=== PATIENT | female | born 1955 | race Caucasian/White ===

== ENCOUNTER 2020-11-04 18:43 | Observation (INO) ==
[2020-11-04 20:40] LABS: Mean Corpuscular HGB Conc 27.2 g/dL (31.6-35.5)
[2020-11-04 20:41] LABS: Basophils # 0.1 K/mcL (0.0-0.2); Basophils % 1.1 %; Eosinophils # 0.1 K/mcL (0.0-0.6); Hematocrit 33.4 % (35.3-44.9); Hemoglobin 9.1 g/dL (11.5-15.4); Immature Granulocytes % 0.2 % (0-4); Lymphocytes # 1.7 K/mcL (0.6-4.6); Lymphocytes % 26.2 %; Mean Corpuscular Hemoglobin 19.3 pg (28.0-33.3); Mean Corpuscular Volume 70.8 fL (83.0-100.0); Mean Platelet Volume 9.8 fL (9.4-12.4); Monocytes # 0.6 K/mcL (0.0-1.3); Platelet Count 274 K/mcL (140-400); Red Blood Count 4.72 M/mcL (3.82-4.97); Red Cell Distribution Width 18.4 % (11.5-14.5); Segmented Neutrophils % 61.5 %; White Blood Count 6.6 K/mcL (4.3-11.1)
[2020-11-04 20:45] LABS: Neutrophils # 4.1 K/mcL (1.6-8.9)
[2020-11-04 20:52] LABS: INR 1.1
[2020-11-04 20:55] LABS: Activated Partial Thrombo Time 24.5 Seconds (26.0-36.0)
[2020-11-04 20:58] LABS: Anisocytosis 1+ (Not Present)
[2020-11-04 20:59] LABS: Hypochromasia Present (Not Present); Microcytosis Present (Not Present); Platelet Estimate Normal (Normal)
[2020-11-04 21:02] LABS: BUN/Creatinine Ratio 14 (6-26); Blood Urea Nitrogen 23 mg/dL (8-23); Carbon Dioxide 26 mEq/L (23-29); Chloride 104 mEq/L (98-107); Glucose 139 mg/dL (70-105); Osmolality,Calculated 292 (280-300); Potassium 4.2 mEq/L (3.5-5.1); Sodium 138 mEq/L (136-145); Troponin I < 0.03 ng/mL (< 0.04); eGFR For African Americans 38 (> 60); eGFR For Non-African Americans 31 (> 60)
[2020-11-04 22:34] LABS: Bacteria,Urine Few per hpf (None-Few); Bilirubin,Urine Negative (Negative); Blood,Urine Negative (Negative); Clarity,Urine Clear (Clear); Color,Urine Yellow (Yellow); Glucose,Urine (UA) Normal (Normal); Hyaline Casts,Urine Few per lpf (None Seen); Ketones,Urine Negative (Negative); Leukocyte Esterase,Urine Small (Negative); Mucus,Urine Few per lpf (None-Few); Nitrite,Urine Negative (Negative); PH,Urine 5.5 pH Units (5.0-8.0); Protein,Urine Trace mg/dL (Neg-Trace); RBC,Urine 0-3 per hpf (0-3); Specific Gravity,Urine 1.024 (1.010-1.025); Squamous Epithelial Cell,Urine Few per hpf (None-Few); Transitional Epi Cells,Urine Few per hpf (None-Few); Urobilinogen,Urine Normal (Normal)
[2020-11-04] MEDS ORDERED: cefTRIAXone 1,000 MG in 0.9 % Sodium Chloride Mini Bag 100 ML IVPB ONE (23:31)
[2020-11-05] MEDS ORDERED: Naloxone 0.4 MG/ML INJ IVP PRN (00:11)
[2020-11-05] MEDS ORDERED: Ipratropium/Albuterol Neb 3 ML IH PRN (00:13)
[2020-11-05 01:12] LABS: Adenovirus Not Detected (Not Detect); Bordetella Pertussis Not Detected (Not Detect); Chlamydophila pneumoniae Not Detected (Not Detect); Coronavirus 229E Not Detected (Not Detect); Coronavirus HKU1 Not Detected (Not Detect); Coronavirus NL63 Not Detected (Not Detect); Coronavirus OC43 Not Detected (Not Detect); Human Metapneumovirus Not Detected (Not Detect); Human Rhinovirus/Enterovirus Not Detected (Not Detect); Influenza A Subtype 2009 H1 Not Detected (Not Detect); Influenza B Not Detected (Not Detect); Mycoplasma pneumoniae Not Detected (Not Detect); Parainfluenza Virus 1 Not Detected (Not Detect); Parainfluenza Virus 2 Not Detected (Not Detect); Parainfluenza Virus 3 Not Detected (Not Detect); Parainfluenza Virus 4 Not Detected (Not Detect); Respiratory Syncytial Virus Not Detected (Not Detect); SARS-CoV-2 Not Detected (Not Detect)
[2020-11-05] MEDS ORDERED: Perflutren Lipid Microsphere 1.3 ML in 0.9 % Sodium Chloride 8.7 ML IVP PRN (01:45)
[2020-11-05 02:30] LABS: Basophils # 0.1 K/mcL (0.0-0.2); Basophils % 1.3 %; Eosinophils # 0.2 K/mcL (0.0-0.6); Eosinophils % 2.3 %; Hematocrit 33.5 % (35.3-44.9); Hemoglobin 9.1 g/dL (11.5-15.4); Immature Granulocytes % 0.3 % (0-4); Lymphocytes # 2.3 K/mcL (0.6-4.6); Lymphocytes % 32.9 %; Mean Corpuscular HGB Conc 27.2 g/dL (31.6-35.5); Mean Corpuscular Hemoglobin 18.8 pg (28.0-33.3); Mean Corpuscular Volume 69.4 fL (83.0-100.0); Mean Platelet Volume 9.6 fL (9.4-12.4); Monocytes # 0.7 K/mcL (0.0-1.3); Monocytes % 10.5 %; Neutrophils # 3.7 K/mcL (1.6-8.9); Platelet Count 275 K/mcL (140-400); Red Blood Count 4.83 M/mcL (3.82-4.97); Red Cell Distribution Width 18.7 % (11.5-14.5); Segmented Neutrophils % 52.7 %
[2020-11-05] MEDS: 0.9 % Sodium Chloride 1,000 ML IVC SCH ×2 (02:37→13:48)
[2020-11-05 02:43] LABS: INR 1.1; Prothrombin Time 12.9 Seconds (9.4-12.1)
[2020-11-05 02:53] LABS: % Iron Saturation 4 % (15-50); Alanine Aminotransferase 43 Units/L (7-52); Albumin 3.8 g/dL (3.5-5.7); Albumin/Globulin Ratio 1.3 (1.1-2.2); Alkaline Phosphatase 51 Units/L (34-104); Aspartate Amino Transferase 40 Units/L (13-39); BUN/Creatinine Ratio 14 (6-26); Bilirubin,Total 0.4 mg/dL (0.3-1.0); Blood Urea Nitrogen 22 mg/dL (8-23); Carbon Dioxide 26 mEq/L (23-29); Chloride 104 mEq/L (98-107); Chol/HDL Ratio 7.5 (0-4.9); Cholesterol 278 mg/dL (< 200); Glucose 93 mg/dL (70-105); HDL Cholesterol 37 mg/dL (40-59); Iron 21 mcg/dL (50-170); LDL Cholesterol,Calculated 197 mg/dL (< 100); Magnesium 1.9 mg/dL (1.6-2.6); Osmolality,Calculated 293 (280-300); Sodium 140 mEq/L (136-145); Total Protein 6.8 g/dL (6.4-8.9); Transferrin 393 mg/dL (203-362); Triglycerides 222 mg/dL (< 150); Troponin I < 0.03 ng/mL (< 0.04); eGFR For African Americans 40 (> 60); eGFR For Non-African Americans 33 (> 60)
[2020-11-05 03:06] LABS: Thyroid Stimulating Hormone 2.346 mcIU/mL (0.340-5.600)
[2020-11-05 03:12] LABS: Ferritin 8 ng/mL (10-120)
[2020-11-05 03:16] LABS: Folate 7.9 ng/mL (3.0-16.0)
[2020-11-05 04:08] LABS: Estimated Average Glucose 120 mg/dl; Hemoglobin A1C 5.8 %
[2020-11-05] MEDS: Gabapentin 300 MG CAPSULE PO SCH ×4 (05:01→20:27)
[2020-11-05] MEDS: Acetaminophen 325 MG TABLET PO PRN ×2 (05:04→20:33)
[2020-11-05] MEDS: *HR* Heparin 5,000 UNIT/ML VIAL SQ SCH ×2 (05:05→16:44)
[2020-11-05] MEDS: Cholecalciferol (D-3) 1,000 UNIT (25MCG) TABLET PO SCH (07:48)
[2020-11-05] MEDS: FLUoxetine 20 MG CAPSULE PO SCH ×2 (07:49→20:27)
[2020-11-05] MEDS: cefTRIAXone 1,000 MG in 0.9 % Sodium Chloride Mini Bag 100 ML IVPB SCH (07:49)
[2020-11-05] MEDS ORDERED: BuPROPion XL (24 HR) 150 MG TABLET PO SCH (09:00)
[2020-11-05] MEDS: *HR* OxyCODONE Immed Rel 5 MG TABLET PO PRN ×2 (11:59→14:50)
[2020-11-06] MEDS ORDERED: *HR* LORazepam 2 MG/ML VIAL IVP ONE ×2 (00:15→20:45)
[2020-11-06 04:25] LABS: Calcium 9.6 mg/dL (8.6-10.3); Magnesium 1.9 mg/dL (1.6-2.6); Phosphorous 3.9 mg/dL (2.7-4.5); Potassium 4.2 mEq/L (3.5-5.1)
[2020-11-06] MEDS: *HR* Heparin 5,000 UNIT/ML VIAL SQ SCH ×2 (05:19→17:08)
[2020-11-06] MEDS: *HR* OxyCODONE Immed Rel 5 MG TABLET PO PRN (05:24)
[2020-11-06] MEDS: Cholecalciferol (D-3) 1,000 UNIT (25MCG) TABLET PO SCH (10:24)
[2020-11-06] MEDS: Cyanocobalamin (B-12) 1,000 MCG TABLET PO SCH (10:24)
[2020-11-06] MEDS: FLUoxetine 20 MG CAPSULE PO SCH ×2 (10:24→21:58)
[2020-11-06] MEDS: cefTRIAXone 1,000 MG in 0.9 % Sodium Chloride Mini Bag 100 ML IVPB SCH (10:24)
[2020-11-06] MEDS: Gabapentin 300 MG CAPSULE PO SCH ×3 (10:24→21:57)
[2020-11-06] MEDS: BuPROPion XL (24 HR) 150 MG TABLET PO SCH (10:24)
[2020-11-07] MEDS: *HR* OxyCODONE Immed Rel 5 MG TABLET PO PRN ×2 (00:02→16:24)
[2020-11-07] MEDS: *HR* Heparin 5,000 UNIT/ML VIAL SQ SCH ×2 (05:16→16:24)
[2020-11-07] MEDS: Acetaminophen 325 MG TABLET PO PRN (05:16)
[2020-11-07 06:32] LABS: Potassium 4.2 mEq/L (3.5-5.1)
[2020-11-07] MEDS: Gabapentin 300 MG CAPSULE PO SCH ×3 (07:59→19:36)
[2020-11-07] MEDS: BuPROPion XL (24 HR) 150 MG TABLET PO SCH (07:59)
[2020-11-07] MEDS: Cyanocobalamin (B-12) 1,000 MCG TABLET PO SCH (07:59)
[2020-11-07] MEDS: Cholecalciferol (D-3) 1,000 UNIT (25MCG) TABLET PO SCH (07:59)
[2020-11-07] MEDS: FLUoxetine 20 MG CAPSULE PO SCH ×2 (07:59→19:36)
[2020-11-07] MEDS: cefTRIAXone 1,000 MG in 0.9 % Sodium Chloride Mini Bag 100 ML IVPB SCH (08:00)
[2020-11-07] MEDS: Ondansetron 4 MG/2 ML VIAL IVP PRN (13:56)
[2020-11-08] MEDS: *HR* Heparin 5,000 UNIT/ML VIAL SQ SCH ×2 (05:01→16:35)
[2020-11-08 07:16] LABS: Hematocrit 28.7 % (35.3-44.9); Hemoglobin 7.7 g/dL (11.5-15.4); Mean Corpuscular HGB Conc 26.8 g/dL (31.6-35.5); Mean Corpuscular Hemoglobin 19.2 pg (28.0-33.3); Mean Corpuscular Volume 71.6 fL (83.0-100.0); Mean Platelet Volume 9.9 fL (9.4-12.4); Platelet Count 236 K/mcL (140-400); Red Blood Count 4.01 M/mcL (3.82-4.97); Red Cell Distribution Width 18.8 % (11.5-14.5); White Blood Count 5.7 K/mcL (4.3-11.1)
[2020-11-08 07:36] LABS: Calcium 9.7 mg/dL (8.6-10.3); Potassium 4.1 mEq/L (3.5-5.1)
[2020-11-08] MEDS: FLUoxetine 20 MG CAPSULE PO SCH ×2 (08:07→19:58)
[2020-11-08] MEDS: Cyanocobalamin (B-12) 1,000 MCG TABLET PO SCH (08:07)
[2020-11-08] MEDS: Gabapentin 300 MG CAPSULE PO SCH ×3 (08:07→19:57)
[2020-11-08] MEDS: Cholecalciferol (D-3) 1,000 UNIT (25MCG) TABLET PO SCH (08:07)
[2020-11-08] MEDS: cefTRIAXone 1,000 MG in 0.9 % Sodium Chloride Mini Bag 100 ML IVPB SCH (08:07)
[2020-11-08] MEDS: BuPROPion XL (24 HR) 150 MG TABLET PO SCH (08:07)
[2020-11-08] MEDS ORDERED: Ferumoxytol 510 MG in 0.9 % Sodium Chloride 100 ML IVPB ONE (08:11)
[2020-11-08] MEDS: *HR* OxyCODONE Immed Rel 5 MG TABLET PO PRN ×2 (09:35→20:44)
[2020-11-08] MEDS: Ondansetron 4 MG/2 ML VIAL IVP PRN (13:40)
[2020-11-08] MEDS: hydrOXYzine pamoate 25 MG CAPSULE PO PRN ×2 (14:20→19:57)
[2020-11-08] MEDS: Acetaminophen 325 MG TABLET PO PRN (23:29)
[2020-11-09] MEDS: *HR* Heparin 5,000 UNIT/ML VIAL SQ SCH ×2 (05:30→17:59)
[2020-11-09] MEDS ORDERED: Acetaminophen IV 1,000 MG/100 ML BAG IVPB ONE (05:47)
[2020-11-09 06:02] LABS: Red Cell Distribution Width 19.5 % (11.5-14.5)
[2020-11-09 06:03] LABS: Hematocrit 29.9 % (35.3-44.9); Hemoglobin 8.1 g/dL (11.5-15.4); Mean Corpuscular HGB Conc 27.1 g/dL (31.6-35.5); Mean Corpuscular Hemoglobin 19.5 pg (28.0-33.3); Mean Platelet Volume 11.1 fL (9.4-12.4); Platelet Count 217 K/mcL (140-400); Red Blood Count 4.15 M/mcL (3.82-4.97); White Blood Count 6.5 K/mcL (4.3-11.1)
[2020-11-09 06:21] LABS: Potassium 4.2 mEq/L (3.5-5.1)
[2020-11-09] MEDS: cefTRIAXone 1,000 MG in 0.9 % Sodium Chloride Mini Bag 100 ML IVPB SCH (08:47)
[2020-11-09] MEDS: Gabapentin 300 MG CAPSULE PO SCH ×3 (08:47→21:47)
[2020-11-09] MEDS: BuPROPion XL (24 HR) 150 MG TABLET PO SCH (08:47)
[2020-11-09] MEDS: Cholecalciferol (D-3) 1,000 UNIT (25MCG) TABLET PO SCH (08:48)
[2020-11-09] MEDS: Cyanocobalamin (B-12) 1,000 MCG TABLET PO SCH (08:48)
[2020-11-09] MEDS: FLUoxetine 20 MG CAPSULE PO SCH ×2 (08:48→21:48)
[2020-11-09] MEDS: *HR* OxyCODONE Immed Rel 5 MG TABLET PO PRN ×2 (10:19→21:48)
[2020-11-09] MEDS: hydrOXYzine pamoate 25 MG CAPSULE PO PRN (21:49)
[2020-11-10] MEDS: *HR* Heparin 5,000 UNIT/ML VIAL SQ SCH ×2 (05:44→16:14)
[2020-11-10] MEDS: Gabapentin 300 MG CAPSULE PO SCH ×3 (08:26→20:12)
[2020-11-10] MEDS: BuPROPion XL (24 HR) 150 MG TABLET PO SCH (08:26)
[2020-11-10] MEDS: Cholecalciferol (D-3) 1,000 UNIT (25MCG) TABLET PO SCH (08:26)
[2020-11-10] MEDS: FLUoxetine 20 MG CAPSULE PO SCH ×2 (08:27→20:12)
[2020-11-10] MEDS: Cyanocobalamin (B-12) 1,000 MCG TABLET PO SCH (08:27)
[2020-11-10] MEDS: *HR* OxyCODONE Immed Rel 5 MG TABLET PO PRN ×2 (11:36→20:11)
[2020-11-11] MEDS: Ondansetron 4 MG/2 ML VIAL IVP PRN (00:42)
[2020-11-11 00:57] LABS: Hematocrit 34.1 % (35.3-44.9); Hemoglobin 8.8 g/dL (11.5-15.4); Mean Corpuscular HGB Conc 25.8 g/dL (31.6-35.5); Mean Corpuscular Hemoglobin 18.9 pg (28.0-33.3); Mean Corpuscular Volume 73.2 fL (83.0-100.0); Mean Platelet Volume 9.8 fL (9.4-12.4); Platelet Count 296 K/mcL (140-400); Red Blood Count 4.66 M/mcL (3.82-4.97); Red Cell Distribution Width 20.9 % (11.5-14.5); White Blood Count 10.1 K/mcL (4.3-11.1)
[2020-11-11 01:18] LABS: Calcium 10.2 mg/dL (8.6-10.3); Potassium 4.4 mEq/L (3.5-5.1)
[2020-11-11] MEDS: *HR* Heparin 5,000 UNIT/ML VIAL SQ SCH ×2 (06:27→17:47)
[2020-11-11] MEDS: Gabapentin 300 MG CAPSULE PO SCH ×3 (08:17→21:40)
[2020-11-11] MEDS: BuPROPion XL (24 HR) 150 MG TABLET PO SCH (08:17)
[2020-11-11] MEDS: Cholecalciferol (D-3) 1,000 UNIT (25MCG) TABLET PO SCH (08:18)
[2020-11-11] MEDS: Cyanocobalamin (B-12) 1,000 MCG TABLET PO SCH (08:18)
[2020-11-11] MEDS: *HR* OxyCODONE Immed Rel 5 MG TABLET PO PRN ×2 (08:18→21:40)
[2020-11-11] MEDS: hydrOXYzine pamoate 25 MG CAPSULE PO PRN ×2 (08:18→15:58)
[2020-11-11] MEDS: FLUoxetine 20 MG CAPSULE PO SCH ×2 (08:18→21:40)
[2020-11-12] MEDS: *HR* Heparin 5,000 UNIT/ML VIAL SQ SCH ×2 (06:25→17:53)
[2020-11-12] MEDS: Cholecalciferol (D-3) 1,000 UNIT (25MCG) TABLET PO SCH (08:24)
[2020-11-12] MEDS: BuPROPion XL (24 HR) 150 MG TABLET PO SCH (08:24)
[2020-11-12] MEDS: Gabapentin 300 MG CAPSULE PO SCH ×3 (08:24→20:27)
[2020-11-12] MEDS: Cyanocobalamin (B-12) 1,000 MCG TABLET PO SCH (08:25)
[2020-11-12] MEDS: FLUoxetine 20 MG CAPSULE PO SCH ×2 (08:25→20:27)
[2020-11-12] MEDS: *HR* OxyCODONE Immed Rel 5 MG TABLET PO PRN ×2 (11:39→20:32)
[2020-11-12] MEDS: hydrOXYzine pamoate 25 MG CAPSULE PO PRN (20:32)
[2020-11-13] MEDS: Acetaminophen 325 MG TABLET PO PRN (02:30)
[2020-11-13] MEDS: *HR* OxyCODONE Immed Rel 5 MG TABLET PO PRN ×2 (06:10→21:03)
[2020-11-13] MEDS: *HR* Heparin 5,000 UNIT/ML VIAL SQ SCH ×2 (06:12→15:53)
[2020-11-13] MEDS: Gabapentin 300 MG CAPSULE PO SCH ×3 (08:02→21:02)
[2020-11-13] MEDS: Cholecalciferol (D-3) 1,000 UNIT (25MCG) TABLET PO SCH (08:02)
[2020-11-13] MEDS: BuPROPion XL (24 HR) 150 MG TABLET PO SCH (08:02)
[2020-11-13] MEDS: FLUoxetine 20 MG CAPSULE PO SCH ×2 (08:03→21:02)
[2020-11-13] MEDS: Cyanocobalamin (B-12) 1,000 MCG TABLET PO SCH (08:03)
[2020-11-13] MEDS: hydrOXYzine pamoate 25 MG CAPSULE PO PRN ×2 (15:53→21:03)
[2020-11-14 03:42] LABS: Mean Platelet Volume 10.2 fL (9.4-12.4)
[2020-11-14 03:44] LABS: Hematocrit 30.7 % (35.3-44.9); Hemoglobin 8.2 g/dL (11.5-15.4); Mean Corpuscular HGB Conc 26.7 g/dL (31.6-35.5); Mean Corpuscular Hemoglobin 20.5 pg (28.0-33.3); Mean Corpuscular Volume 76.8 fL (83.0-100.0); Platelet Count 217 K/mcL (140-400); Red Cell Distribution Width 24.1 % (11.5-14.5); White Blood Count 6.9 K/mcL (4.3-11.1)
[2020-11-14 04:02] LABS: Calcium 9.5 mg/dL (8.6-10.3); Potassium 4.6 mEq/L (3.5-5.1)
[2020-11-14] MEDS: *HR* Heparin 5,000 UNIT/ML VIAL SQ SCH ×2 (05:21→17:33)
[2020-11-14] MEDS: FLUoxetine 20 MG CAPSULE PO SCH ×2 (09:01→21:37)
[2020-11-14] MEDS: Cholecalciferol (D-3) 1,000 UNIT (25MCG) TABLET PO SCH (09:01)
[2020-11-14] MEDS: Gabapentin 300 MG CAPSULE PO SCH ×3 (09:02→21:37)
[2020-11-14] MEDS: BuPROPion XL (24 HR) 150 MG TABLET PO SCH (09:02)
[2020-11-14] MEDS: Cyanocobalamin (B-12) 1,000 MCG TABLET PO SCH (09:02)
[2020-11-14] MEDS: *HR* OxyCODONE Immed Rel 5 MG TABLET PO PRN (09:10)
[2020-11-14] MEDS: hydrOXYzine pamoate 25 MG CAPSULE PO PRN (17:33)
[2020-11-15] MEDS: *HR* OxyCODONE Immed Rel 5 MG TABLET PO PRN ×3 (03:10→23:22)
[2020-11-15] MEDS: *HR* Heparin 5,000 UNIT/ML VIAL SQ SCH ×2 (05:38→16:58)
[2020-11-15] MEDS: Cyanocobalamin (B-12) 1,000 MCG TABLET PO SCH (07:44)
[2020-11-15] MEDS: BuPROPion XL (24 HR) 150 MG TABLET PO SCH (07:44)
[2020-11-15] MEDS: Cholecalciferol (D-3) 1,000 UNIT (25MCG) TABLET PO SCH (07:44)
[2020-11-15] MEDS: FLUoxetine 20 MG CAPSULE PO SCH ×2 (07:44→21:28)
[2020-11-15] MEDS: Gabapentin 300 MG CAPSULE PO SCH ×3 (07:44→21:27)
[2020-11-15] MEDS: hydrOXYzine pamoate 25 MG CAPSULE PO PRN ×2 (07:53→14:52)
[2020-11-15] MEDS ORDERED: Ondansetron ODT 4 MG TAB.RAPDIS SL PRN (13:03)
[2020-11-15] MEDS: Simethicone 80 MG TAB.CHEW PO PRN (15:23)
[2020-11-16] MEDS: hydrOXYzine pamoate 25 MG CAPSULE PO PRN ×3 (00:26→17:16)
[2020-11-16] MEDS: *HR* Heparin 5,000 UNIT/ML VIAL SQ SCH ×2 (05:22→17:11)
[2020-11-16] MEDS: Cholecalciferol (D-3) 1,000 UNIT (25MCG) TABLET PO SCH (08:02)
[2020-11-16] MEDS: BuPROPion XL (24 HR) 150 MG TABLET PO SCH (08:02)
[2020-11-16] MEDS: FLUoxetine 20 MG CAPSULE PO SCH ×2 (08:02→20:57)
[2020-11-16] MEDS: Gabapentin 300 MG CAPSULE PO SCH ×3 (08:02→20:57)
[2020-11-16] MEDS: Cyanocobalamin (B-12) 1,000 MCG TABLET PO SCH (08:03)
[2020-11-16] MEDS: *HR* OxyCODONE Immed Rel 5 MG TABLET PO PRN ×2 (09:13→17:15)
[2020-11-17] MEDS: *HR* OxyCODONE Immed Rel 5 MG TABLET PO PRN ×3 (01:26→21:58)
[2020-11-17] MEDS: hydrOXYzine pamoate 25 MG CAPSULE PO PRN ×3 (01:26→21:58)
[2020-11-17] MEDS: *HR* Heparin 5,000 UNIT/ML VIAL SQ SCH ×2 (05:08→16:31)
[2020-11-17] MEDS: Cyanocobalamin (B-12) 1,000 MCG TABLET PO SCH (10:02)
[2020-11-17] MEDS: Cholecalciferol (D-3) 1,000 UNIT (25MCG) TABLET PO SCH (10:02)
[2020-11-17] MEDS: Gabapentin 300 MG CAPSULE PO SCH ×3 (10:02→20:44)
[2020-11-17] MEDS: FLUoxetine 20 MG CAPSULE PO SCH ×2 (10:02→20:48)
[2020-11-17] MEDS: BuPROPion XL (24 HR) 150 MG TABLET PO SCH (10:02)
[2020-11-17] MEDS: Simethicone 80 MG TAB.CHEW PO PRN (22:02)
[2020-11-18] MEDS: *HR* Heparin 5,000 UNIT/ML VIAL SQ SCH ×2 (05:03→16:58)
[2020-11-18] MEDS: Gabapentin 300 MG CAPSULE PO SCH ×3 (08:09→19:38)
[2020-11-18] MEDS: FLUoxetine 20 MG CAPSULE PO SCH ×2 (08:09→19:39)
[2020-11-18] MEDS: Cholecalciferol (D-3) 1,000 UNIT (25MCG) TABLET PO SCH (08:10)
[2020-11-18] MEDS: BuPROPion XL (24 HR) 150 MG TABLET PO SCH (08:10)
[2020-11-18] MEDS: Cyanocobalamin (B-12) 1,000 MCG TABLET PO SCH (08:10)
[2020-11-18] MEDS: *HR* OxyCODONE Immed Rel 5 MG TABLET PO PRN ×2 (09:29→22:58)
[2020-11-18] MEDS: hydrOXYzine pamoate 25 MG CAPSULE PO PRN ×2 (09:29→20:14)
[2020-11-19] MEDS: *HR* Heparin 5,000 UNIT/ML VIAL SQ SCH (05:41)
[2020-11-19 07:36] LABS: Eosinophils % 2.4 %; Segmented Neutrophils % 55.1 %
[2020-11-19 07:37] LABS: Basophils # 0.1 K/mcL (0.0-0.2); Basophils % 1.2 %; Eosinophils # 0.1 K/mcL (0.0-0.6); Hematocrit 31.7 % (35.3-44.9); Hemoglobin 8.4 g/dL (11.5-15.4); Immature Granulocytes % 0.3 % (0-4); Lymphocytes # 1.8 K/mcL (0.6-4.6); Lymphocytes % 31.1 %; Mean Corpuscular HGB Conc 26.5 g/dL (31.6-35.5); Mean Corpuscular Hemoglobin 21.1 pg (28.0-33.3); Mean Corpuscular Volume 79.4 fL (83.0-100.0); Mean Platelet Volume 10.7 fL (9.4-12.4); Monocytes # 0.6 K/mcL (0.0-1.3); Monocytes % 9.9 %; Platelet Count 180 K/mcL (140-400); Red Blood Count 3.99 M/mcL (3.82-4.97); White Blood Count 5.9 K/mcL (4.3-11.1)
[2020-11-19 07:58] LABS: Bilirubin,Direct 0.1 mg/dL (0.0-0.2); Bilirubin,Total 0.5 mg/dL (0.3-1.0); Calcium 9.7 mg/dL (8.6-10.3); Magnesium 2.1 mg/dL (1.6-2.6); Potassium 4.2 mEq/L (3.5-5.1)
[2020-11-19 07:59] LABS: Albumin 3.4 g/dL (3.5-5.7); Albumin/Globulin Ratio 1.3 (1.1-2.2); Bilirubin,Indirect 0.4 mg/dL (0.0-1.0); Globulin 2.7 g/dL (2.4-3.5); Total Protein 6.1 g/dL (6.4-8.9)
[2020-11-19 08:48] LABS: Neutrophils # 3.3 K/mcL (1.6-8.9)
[2020-11-19] MEDS: Gabapentin 300 MG CAPSULE PO SCH (09:04)
[2020-11-19] MEDS: FLUoxetine 20 MG CAPSULE PO SCH (09:04)
[2020-11-19] MEDS: Cyanocobalamin (B-12) 1,000 MCG TABLET PO SCH (09:04)
[2020-11-19] MEDS: BuPROPion XL (24 HR) 150 MG TABLET PO SCH (09:04)
[2020-11-19] MEDS: Cholecalciferol (D-3) 1,000 UNIT (25MCG) TABLET PO SCH (09:05)
[2020-11-19] MEDS: *HR* OxyCODONE Immed Rel 5 MG TABLET PO PRN (09:08)
[2020-11-19 09:15] LABS: Anisocytosis 2+ (Not Present)
[2020-11-19 09:16] LABS: Hypochromasia Present (Not Present); Reactive Lymphocytes Present (Not Present)
[2020-11-19] MEDS: Simethicone 80 MG TAB.CHEW PO PRN (09:19)
[2020-11-19 10:46] VITALS: BP 108/52
[2020-11-19 14:05] LABS: Adenovirus Not Detected (Not Detect); Bordetella Pertussis Not Detected (Not Detect); Chlamydophila pneumoniae Not Detected (Not Detect); Coronavirus 229E Not Detected (Not Detect); Coronavirus HKU1 Not Detected (Not Detect); Coronavirus NL63 Not Detected (Not Detect); Coronavirus OC43 Not Detected (Not Detect); Human Metapneumovirus Not Detected (Not Detect); Human Rhinovirus/Enterovirus Not Detected (Not Detect); Influenza A Subtype 2009 H1 Not Detected (Not Detect); Influenza B Not Detected (Not Detect); Mycoplasma pneumoniae Not Detected (Not Detect); Parainfluenza Virus 1 Not Detected (Not Detect); Parainfluenza Virus 2 Not Detected (Not Detect); Parainfluenza Virus 3 Not Detected (Not Detect); Parainfluenza Virus 4 Not Detected (Not Detect); Respiratory Syncytial Virus Not Detected (Not Detect); SARS-CoV-2 Not Detected (Not Detect)
== END 2020-11-19 14:51 ==
LOC: EMEROOARM 18:43 → 3NENU 18:43 → SUATTDRO 23:55 → 3BNU 11-05 00:49
PROVIDERS: ADMIT Student in an Organized Health Care Education/Training Program; ATTEND Pharmacist